=== PATIENT | male | born 1985 | race Hispanic/Latino ===

== ENCOUNTER 2022-12-07 07:44 | Emergency (ER) | payer BC ==
--- OUTSIDE RECORDS SUMMARY | 2022-12-07 07:46 | XMS REPORT | Continuity of Care Document ---
:1985 Author Organization [facility] t Address [address] [facility] [address] [place] [address] Care Team Providers Name Role Phone ZACHARY NEUMANN Primary Care Physician Unavailable Gerson Peng DO Attending Clinician GERSON PENG Attending Clinician Unavailable Payers Payer Name Policy Type Policy Number Effective Date Expiration Date S ource Problems Condition Condition Condition Status Onset Resolution Last Treating Co mments Source Name Details Category Date Date Treatment Clinician Date No known No known Disease Unive rs active active ity of problems problems [facility] [place] [facility] Allergies, Adverse Reactions, Alerts Allergy Allergy Status Severity Reaction(s) Onset Inactive Treating Comm ents Source Name Type Date Date Clinician NO KNOWN Drug Active Univers ALLERGIE Class ity of [facility] Social History Social Habit Start Date Stop Date Quantity Comments Source Exposure to Not sure [facility] SARS-CoV-2 (event) Medica l [place] Sex Assigned At [address] 1985 [facility] 00:00:00 00:00:00 [facility] Branch Smoking Status Start Date Stop Date Source Unknown if ever smoked [facility] Medications Ordered Filled Start Stop Current Ordering Indication Dosage Frequency Signature Comments Components Source Medication Medication Date Date Medication? Clinician (SIG) Name Name chlorphenir Yes [id number] 4mg Take 1 Univers amine 4 mg 3-09 tablet by ity of tablet 00:00: mouth [place] 00 every 6 Medical (six) Branch hours as needed for Allergies or Runny nose. calcium/mag Yes [id number] 1{each} Take 1 Univers nesium/zinc 3-09 Each by ity o f (CALCIUM-MA 00:00: mouth [place] GNESUIUM-ZI 00 daily. Medica l [place]) Branch 333-133-5 mg Tab benzonatate Yes [id number] 100mg Take 1 Univers 100 mg 05-30 capsule by ity of capsule 00:00: mouth 3 [place] 00 (three) Medical times Branch daily as needed for Cough. nirmatrelvi Yes [id number] 3{tbl} Take 3 Univers r-ritonavir 3- tablets by it y of (PAXLOVID, [place]:00[place] EUA,) 300 00 (two) Medical mg (150 mg times Branch x 2)-100 mg daily. tablet vitamin 2021- No [id number] 1{tbl} Take 1 Univers D3-folic 3- tablet by ity o f acid 125 00:00: 04:59 mouth [place] mcg (5,000 00 :00 daily for Medi [place] [facility])-1 mg 30 days. Branc h Tab Vital Signs Vital Name Observation Time Observation Value Comments Source Heart rate 2021-05-30 102 /min [facility] 14:36:45 [facility] [place] [facility] Oxygen saturation 2021-05-30 97 /min while ambulating [facility] sity of in Arterial blood 14:36:[address] [facility] by Pulse oximetry [place] Systolic blood 2021-05-30 145 mm[Hg] [facility] pressure 14:35:15 [facility] [place] [facility] Diastolic blood 2021-05-30 87 mm[Hg] [facility] pressure 14:35:15 [facility] [place] [facility] Body temperature 2021-05-30 37.06 Stacey [facility] 14:35:15 [facility] [place] [facility] Respiratory rate 2021-05-30 18 /min [facility] 14:35:15 [facility] Body height 2021-05-30 165.1 cm University 14:31:00 [facility] [place] [facility] Body weight 2021-05-30 74.844 kg University 14:31:00 [facility] [place] [facility] BMI 2021-05-30 27.46 kg/m2 [facility] 14:31:00 [facility] [place] [facility] Procedures Procedure Date / Time Performed Performing Clinician Sour e NOTICE OF PRIVACY 2021-05-30 14:27:58 Doctor Unassigned, No Univ [facility] PRACTICES Name Medical Branch Encounters Start End Encounter Admission Attending Care Care Encounter Source Date/Time Date/Time Type Type Clinicians Facility Department ID 2021-05-30 2021-05-30 Emergency MARINO PengMB [id number] Univers 08:36:00 09:06:00 Gerson [place] [id number] i [facility] [id number] [facility] [id number] [place] [address] Branch 2021-05-30 2021-05-30 Emergency X SINGER [facility] ERT [id number] Univers 08:36:00 09:06:00 GERSON cornelius of [facility] Results This patient has no known results.
[2022-12-07] MEDS ORDERED: TETRACAINE HCL 0.5% 4ML OPTH ONE (08:19)
[2022-12-07] MEDS ORDERED: TOBRAMYCIN SULF 0.3% OPTH OINT ONE (08:19)
[2022-12-07] MEDS ORDERED: FLUORESCEIN SODIUM 1 MG/WRAP ONE (08:20)
[2022-12-07] MEDS ORDERED: TDAP (DIPHTH,PERTUSS(ACELL),TET VAC) 0.5 ML VIAL IMVAC ONE (08:20)
[2022-12-07] MEDS ORDERED: ERYTHROMYCIN 3.5GM OPTH OINT ONE (08:21)
--- NOTE | 2022-12-07 08:33 | ER ---
Nurse's Notes [facility] Name: Kenny Engel Age: 37 yrs Sex: Male : 1985 Arrival Date: 12/07/2022 Time: 07:44 Bed 5 Private MD: Diagnosis: Ocular pain, left eye Presentation: 12/07 08:00 Chief complaint: Possible metal in left eye after grinding metal at work yesterday. hb Coronavirus screen: At this time, the client does not indicate any symptoms associated with coronavirus-19. Ebola Screen: No symptoms or risks identified at this time. Initial Sepsis Screen: Does the patient meet any 2 criteria? No. Patient's initial sepsis screen is negative. Does the patient have a suspected source of infection? No. Patient's initial sepsis screen is negative. Risk Assessment: Do you want to hurt yourself or someone else? Patient reports no desire to harm self or others. Onset of symptoms was December 06, 2022. 08:00 Method Of Arrival: Ambulatory hb 08:00 Acuity: JULIO 4 hb Historical: - Allergies: 08:21 No Known Allergies; kc6 - Immunization history:: Adult Immunizations unknown. - Social history:: Smoking status: unknown. Screenin:22 [facility] ED Fall Risk Assessment (Adult) History of falling in the last 3 months, kc6 including since admission No falls in past 3 months (0 pts) Confusion or Disorientation No (0 pts) Intoxicated or Sedated No (0 pts) Impaired Gait No (0 pts) Mobility Assist Device Used No (0 pt) Altered Elimination No (0 pt) Score/Fall Risk Level 0 - 2 = Low Risk. Abuse screen: Denies threats or abuse. Denies injuries from another. Nutritional screening: No deficits noted. Tuberculosis screening: No symptoms or risk factors identified. Assessment: 08:22 General: Appears in no apparent distress. comfortable, Behavior is calm, cooperative, kc6 appropriate for age. Pain: Complains of pain in left eye. Neuro: Level of Consciousness is awake, alert, obeys commands, Oriented to person, place, time, situation, Appropriate for age. Cardiovascular: Capillary refill < 3 seconds. Respiratory: Airway is patent Trachea midline Respiratory effort is even, unlabored, Respiratory pattern is regular, symmetrical. GI: No signs and/or symptoms were reported involving the gastrointestinal system. : No signs and/or symptoms were reported regarding the genitourinary system. Derm: No signs and/or symptoms reported regarding the dermatologic system. Skin is intact, is healthy with good turgor, Skin is pink, warm \T\ dry. Musculoskeletal: No signs and/or symptoms reported regarding the musculoskeletal system. Circulation, motion, and sensation intact. Capillary refill < 3 seconds, Range of motion: intact in all extremities. Vital Signs: 08:00 BP 126 / 92; Pulse 63; Resp 16; Temp 98.3; Pulse Ox 99% on R/A; Weight 74.84 kg; Height hb 5 ft. 5 in. ; Pain 5/10; 08:00 Body Mass Index 27.46 (74.84 kg, 165.1 cm) hb 08:00 Pain Scale: Adult hb ED Course: 07:52 Patient arrived in ED. mg5 07:56 [facility] Ro[facility]-C [facility] snw 07:56 Wilfrido Browne MD is Attending Physician. snw 07:58 Janet Etienne RN is Primary Nurse. kc6 08:03 Triage completed. hb 08:22 Patient has correct armband on for positive identification. Bed in low position. Call kc6 light in reach. Side rails up X 1. Client placed on continuous cardiac and pulse oximetry monitoring. NIBP monitoring applied. 08:22 Arm band placed on. kc6 08:32 Eagle Viera MD is Referral Physician. snw 08:41 No provider procedures requiring assistance completed. Patient did not have IV access kc6 during this emergency room visit. Administered Medications: 08:12 Drug: Boostrix Tdap IM 0.5 ml Route: IM; Site: right deltoid; kc6 08:41 Follow up: Response: No adverse reaction kc6 08:21 Drug: Tetracaine Ophthalmic Drops 0.5 % 1 drops Route: Ophthalmic; Site: left eye; kc6 08:41 Follow up: Response: No adverse reaction; Pain is decreased kc6 08:21 Drug: Tobramycin Ophthalmic Drops (0.3 %) 2 drops Route: Ophthalmic; Site: left eye; kc6 08:41 Follow up: Response: No adverse reaction kc6 08:41 Not Given (Physician Discretion): ERYTHromycin Ophthalmic Ointment 1 application kc6 Ophthalmic once Medication: 08:41 VIS not applicable for this client. kc6 Outcome: 08:32 Discharge ordered by . snwero 08:41 Discharged to home ambulatory. kc6 08:41 Condition: stable 08:41 Discharge instructions given to patient, Instructed on discharge instructions, follow up and referral plans. Demonstrated understanding of instructions, follow-up care. 08:41 Patient left the ED. kc6 Signatures: Emely Rooney, EDUCATIONAL RESOURCE COORDINATOR-C EDUCATIONAL RESOURCE COORDINATOR-Csnw Lizy Gan RN RN Janet Etienne RN RN kc6 Tricia Marie mg5 Corrections: (The following items were deleted from the chart) 08:34 08:21 ERYTHromycin Ophthalmic Ointment 1 application Ophthalmic in left eye kc6 snw
--- NOTE | 2022-12-07 08:33 | EDPHYS ---
Physician Documentation [facility] Name: Kenny Engel Age: 37 yrs Sex: Male : 1985 Arrival Date: 12/07/2022 Time: 07:44 Bed 5 Private MD: ED Physician Wilfrido Browne HPI: 12/07 08:05 This 37 yrs old Male presents to ER via Ambulatory with complaints of Foreign snw Body In Eye. 08:05 The patient is experiencing foreign body sensation, The patient sustained Unknown. snw caused by working on grinding wheel. Onset: The symptoms/episode began/occurred suddenly, yesterday. Duration: the symptoms are continuous. Aggravated by blinking, lying down. Severity of symptoms: At their worst the symptoms were moderate. The patient has not experienced similar symptoms in the past. It is unknown whether or not the patient has recently seen a physician. Historical: - Allergies: 08:21 No Known Allergies; kc6 - Immunization history:: Adult Immunizations unknown. - Social history:: Smoking status: unknown. ROS: 08:05 Eyes: Positive for foreign body sensation, injury or acute deformity. snw Exam: 08:04 Constitutional: This is a well developed, well nourished patient who is awake, alert, snw and in no acute distress. Head/Face: Normocephalic, atraumatic. ENT: Nares patent. No nasal discharge, no septal abnormalities noted. Tympanic membranes are normal and external auditory canals are clear. Oropharynx with no redness, swelling, or masses, exudates, or evidence of obstruction, uvula midline. Mucous membranes moist. Neck: Trachea midline, no thyromegaly or masses palpated, and no cervical lymphadenopathy. Supple, full range of motion without nuchal rigidity, or vertebral point tenderness. No Meningismus. Chest/axilla: Normal chest wall appearance and motion. Nontender with no deformity. No lesions are appreciated. Cardiovascular: Regular rate and rhythm with a normal S1 and S2. No gallops, murmurs, or rubs. Normal PMI, no JVD. No pulse deficits. Respiratory: Lungs have equal breath sounds bilaterally, clear to auscultation and percussion. No rales, rhonchi or wheezes noted. No increased work of breathing, no retractions or nasal flaring. Abdomen/GI: Soft, non-tender, with normal bowel sounds. No distension or tympany. No guarding or rebound. No evidence of tenderness throughout. Back: No spinal tenderness. No costovertebral tenderness. Full range of motion. Skin: Warm, dry with normal turgor. Normal color with no rashes, no lesions, and no evidence of cellulitis. MS/ Extremity: Pulses equal, no cyanosis. Neurovascular intact. Full, normal range of motion. Neuro: Awake and alert, GCS 15, oriented to person, place, time, and situation. Cranial nerves II-XII grossly intact. Motor strength 5/5 in all extremities. Sensory grossly intact. Cerebellar exam normal. Normal gait. Psych: Awake, alert, with orientation to person, place and time. Behavior, mood, and affect are within normal limits. 08:04 Eyes: Periorbital structures: appear normal, Pupils: no acute changes, Extraocular movements: no acute changes, Conjunctiva: normal, Corneas: a fluorescein strip employed to appreciate the findings. Vital Signs: 08:00 BP 126 / 92; Pulse 63; Resp 16; Temp 98.3; Pulse Ox 99% on R/A; Weight 74.84 kg; Height hb 5 ft. 5 in. ; Pain 5/10; 08:00 Body Mass Index 27.46 (74.84 kg, 165.1 cm) hb 08:00 Pain Scale: Adult hb Procedures: 08:31 Eye Exam: unable to see fb, Dr. Browne speaking with Dr. Viera (opthal). [facility] MDM: 07:56 Patient medically screened. snw 08:06 Differential diagnosis: Corneal abrasion of Foreign body in left eye. Data reviewed: [facility] vital signs, nurses notes. I considered the following discharge prescriptions or medication management in the emergency department Medications were administered in the Emergency Department. See MAR. Counseling: I had a detailed discussion with the patient and/or guardian regarding the historical points, exam findings, and any diagnostic results supporting the discharge/admit diagnosis, the need for outpatient follow up, for definitive care, to return to the emergency department if symptoms worsen or persist or if there are any questions or concerns that arise at home. 08:33 Management of patient was discussed with the following: Health And Safety Instructor: Dr. Viera. [facility] 12/07 08:04 Order name: Eye Tray; Complete Time: 08:12 sn 12/07 08:04 Order name: Fluoresene Opth strip; Complete Time: 08:12 snw 12/07 08:04 Order name: Visual Acuity; Complete Time: 08:12 snw Administered Medications: 08:12 Drug: Boostrix Tdap IM 0.5 ml Route: IM; Site: right deltoid; kc6 08:41 Follow up: Response: No adverse reaction kc6 08:21 Drug: Tetracaine Ophthalmic Drops 0.5 % 1 drops Route: Ophthalmic; Site: left eye; kc6 08:41 Follow up: Response: No adverse reaction; Pain is decreased kc6 08:21 Drug: Tobramycin Ophthalmic Drops (0.3 %) 2 drops Route: Ophthalmic; Site: left eye; kc6 08:41 Follow up: Response: No adverse reaction kc6 08:41 Not Given (Physician Discretion): ERYTHromycin Ophthalmic Ointment 1 application kc6 Ophthalmic once Disposition: 08:33 Chart complete. snw Disposition Summary: 12/07/22 08:32 Discharge Ordered Location: Home snw Condition: Stable snw Diagnosis - Ocular pain, left eye snw Followup: snw - With: Eagle Viera MD - When: 10am - Reason: Recheck today's complaints Discharge Instructions: - Discharge Summary Sheet snw - Eye Contusion snw - How to Use Eye Drops and Eye Ointments snw - Dry Eye snw Forms: - Medication Reconciliation Form snw - Thank You Letter snw - Antibiotic Education snw - Prescription Opioid Use snw - Patient Portal Instructions snw - Leadership Thank You Letter snw Signatures: Emely Rooney FNP-C SUPERVISOR PLEATING-Csnw Janet Etienne, RN RN kc6
[2022-12-07 08:46] VITALS: BP 126/92; TEMP 98.3; O2SAT 99
== END 2022-12-07 08:41 | disposition home or self-care (01) ==
LOC: ER 07:44
DX: H57.12 Ocular pain, left eye (principal)
CPT/HCPCS: 96372; 99284